=== PATIENT | male | born 1940 | race Caucasian/White ===

== ENCOUNTER 2018-11-04 08:29 | Day surgery (SDC) | payer MEDICARE, OTHER ==
[~2018-11-04 08:29] MED LIST: Lactated Ringers 1,000 ML IV SCH
[2018-11-04] MEDS ORDERED: fentaNYL 100 MCG/2 ML SDV ONE (09:34)
[2018-11-04] MEDS ORDERED: Propofol 200 MG/20 ML SDV ONE (09:34)
--- NOTE | 2018-11-04 15:34 | OR ---
PREOPERATIVE DIAGNOSIS: History of right-sided colon cancer. POSTOPERATIVE DIAGNOSIS: History of right-sided colon cancer. PROCEDURE PERFORMED: Colonoscopy with polypectomy. INDICATION: The patient is a 78-year-old male with history of colon cancer several years ago. He presents for repeat colonoscopy at this time. PROCEDURE IN DETAIL: This was done in the endoscopy suite. Sedation given per Anesthesia. He was placed in left lateral position. First, a rectal exam was done, was normal. The scope was introduced into the rectum, slowly advanced to the rectum, sigmoid, descending, transverse colon until the previous ileocolic anastomosis was reached. That looked normal, although somewhat strictured down, I did not dilate it as the patient has had no symptoms. The scope was slowly withdrawn looking at all the mucosal surfaces on the way out. Two small polyps were found, 1 at 70 cm and 1 at 20 cm which were removed by cold forceps and sent to pathology. The remainder of the exam was normal. FINAL DIAGNOSIS: Polyp at 70 cm, polyp at 20 cm. BKD: 11/04/2018 10:52:43 MODL: 11/04/2018 14:36:50 /[id number]
== END 2018-11-04 11:50 | disposition home or self-care (01) ==
LOC: VM.SDS 08:29
PROVIDERS: ATTEND Surgery
DX: Z12.11 Encounter for screening for malignant neoplasm of colon (principal); D12.4 Benign neoplasm of descending colon; K63.5 Polyp of colon; I25.10 Atherosclerotic heart disease of native coronary artery without angina pectoris; E03.9 Hypothyroidism, unspecified; K21.9 Gastro-esophageal reflux disease without esophagitis; K44.9 Diaphragmatic hernia without obstruction or gangrene; F32.9 Major depressive disorder, single episode, unspecified; Z85.038 Personal history of other malignant neoplasm of large intestine; Z79.899 Other long term (current) drug therapy; Z88.8 Allergy status to other drugs, medicaments and biological substances; Z79.82 Long term (current) use of aspirin; Z79.02 Long term (current) use of antithrombotics/antiplatelets
CPT/HCPCS: 00811; J2704; J3010; J7120

== ENCOUNTER 2020-03-04 19:44 | Emergency (ER) | payer MEDICARE, OTHER ==
[2020-03-04] MEDS ORDERED: Oxymetazoline 0.05% Nasal Spray 30 ML Bottle NAS ONE (20:05)
--- NOTE | 2020-03-04 20:56 | EDM.PDOC ---
ED HPI GENERAL MEDICAL PROBLEM - General Stated Complaint: NOSE BLEED Time Seen by Provider: 03/04/20 19:50 Source of Information: Reports: Patient History Limitations: Reports: No Limitations - History of Present Illness INITIAL COMMENTS - FREE TEXT/NARRATIVE: Patient comes emergency department today with complaints of epistaxis to the left nares. This patient since about 1300 hrs. today has had on and off bleeding of the left nares. He has attempted direct pressure as well as placement of gauze in the nares without resolution of the bleeding. He has had no recent trauma or injury to his nose. He has very infrequent may be couple nosebleeds a year primarily from the left nares. He only takes aspirin currently as an antiplatelet. He is no longer on Plavix. He does have a very dry nose on the regular basis. He has used saline nasal spray in the past to help with mucosa moisture. No COVID exposure no COVID symptoms. - Related Data Allergies Allergy/AdvReac Type Severity Reaction Status Date / Time budesonide [From Symbicort] Allergy Dizziness Verified 11/04/18 09:20 formoterol [From Symbicort] Allergy Dizziness Verified 11/04/18 09:20 Home Meds: Home Meds Aspirin [Adult Low Dose Aspirin EC] 81 mg PO DAILY 06/16/13 [History] Sertraline HCl [Zoloft] 50 mg PO DAILY 06/16/13 [History] Tamsulosin [Tamsulosin 24 Hr] 0.4 mg PO BEDTIME 06/16/13 [History] guaiFENesin [Mucinex] 600 mg PO DAILY 06/16/13 [History] Clopidogrel [Plavix] 75 mg PO DAILY 10/28/18 [History] Docusate Sodium 100 mg PO BID 10/28/18 [History] Levothyroxine 75 mcg PO ACBREAKFAST 10/28/18 [History] Metoprolol Succinate [Toprol XL] 12.5 mg PO DAILY 10/28/18 [History] Pantoprazole Sodium 40 mg PO BEDTIME 10/28/18 [History] Polyvinyl Alcohol [Akwa Tears] 1 drop OP Q4HR PRN 10/28/18 [History] Umeclidinium Brm/Vilanterol Tr [Anoro Ellipta 62.5-25 MCG] 1 inh IH DAILY 10/28/18 [History] atorvaSTATin Calcium [Lipitor] 40 mg PO BEDTIME 10/28/18 [History] Past Medical History HEENT History: Reports: Allergic Rhinitis, Impaired Vision Cardiovascular History: Reports: CAD, High Cholesterol, Hypertension, Other (See Below) Other Cardiovascular History: atrial flutter. low HDL Respiratory History: Reports: COPD Gastrointestinal History: Reports: GERD, Hiatal Hernia Genitourinary History: Reports: BPH Musculoskeletal History: Reports: Osteoarthritis, Other (See Below) Other Musculoskeletal History: carpal tunnel syndrome. spinal stenosis of lumbar region with radiculopathy Neurological History: Reports: None Psychiatric History: Reports: Depression Endocrine/Metabolic History: Reports: Hypothyroidism Immunologic History: Reports: None Oncologic (Cancer) History: Reports: Colon Dermatologic History: Reports: Other (See Below) Other Dermatologic History: Easily bruises - Past Surgical History HEENT Surgical History: Reports: None Cardiovascular Surgical History: Reports: Coronary Artery Bypass, Coronary Artery Stent Other Cardiovascular Surgeries/Procedures: CABG x2. drug eluting coronary stent placement -11/2016 GI Surgical History: Reports: Cholecystectomy, Colonoscopy, EGD Endocrine Surgical History: Reports: None ED ROS ENT - Review of Systems Review Of Systems: Comprehensive ROS is negative, except as noted in HPI. ED EXAM, ENT - Physical Exam Exam: See Below Exam Limited By: No Limitations General Appearance: Alert, WD/WN, No Apparent Distress Eye Exam: Bilateral Eye: EOMI, PERRL Ears: Normal External Exam Nose: Normal Inspection, Normal Mucousa, No Blood, Other (There is no active bleeding in either the nasopharynx is. I am unable to identify the site of where the bleeding was coming from on the left nasopharynx.) Mouth/Throat: Normal Inspection, Normal Gums, Normal Lips, Normal Oropharynx, Normal Teeth. No: Bleeding (There is no bleeding down the posterior pharynx.) Head: Atraumatic, Normocephalic Neck: Normal Inspection, Supple, Non-Tender Respiratory/Chest: No Respiratory Distress Cardiovascular: Normal Peripheral Pulses, Regular Rate, Rhythm GI/Abdominal: Normal Bowel Sounds, Soft (Male) Exam: Deferred Extremities: Normal Inspection Neurological: Alert, Oriented Psychiatric: Normal Affect, Normal Mood Skin: Warm, Dry, Intact, Normal Color, No Rash Course - Orders/Labs/Meds Meds: Medications Discontinued Medications Generic Name Dose Route Start Last Admin Trade Name Freq PRN Reason Stop Dose Admin Oxymetazoline HCl 1 ml 03/04/20 20:05 Nasal Decongestant [place] JI 03/04/20 20:06 ONETIME ONE - Re-Assessments/Exams Free Text/Narrative Re-Assessment/Exam: 03/04/20 20:58 Was no active bleeding on the initial exam. 2 sprays of oxymetazoline was placed in the bilateral nares. Monitored over the next half an hour or so and he had no recurrence of bleeding. Reexamination of the nares I can still not see any blood in the nasopharynx. I cannot see the site of bleeding this is most likely a posterior type bleed in the nasopharynx. The nasal mucosa is quite raw and dry and cracked. We will send him home with aggressive saline administration of the nasopharynx starting tomorrow as well as consideration for nasal gel. If he has recurrence I discussed the use of oxymetazoline and direct pressure and when to recheck. He is understanding this and his questions are answered. Departure - Departure Time of Disposition: 20:52 Disposition: Home, Self-Care 01 Clinical Impression: Epistaxis - Discharge Information Instructions: Nosebleed, [id number] Referrals: Juanis Luther DO [Primary Care Provider] - Additional Instructions: Home tonight. Saline Nasal spray to each nostril 4 times a day for a week and then 2 sprays each nostril twice daily to help prevent bleeding. Also inquire with the pharmacist about nasal saline gel as another option. If rebleeding occurs, Afrin/Oxymetazoline 2 sprays each nostril then hold direct pressure as shown in the ED for 20 minutes. If the bleeding does not resolve recheck in the ED or clinic. Return to the ED if new or worsening symptoms. Follow up with PCP in the next week if any problems or concerns. - Assessment/Plan Assessment:: Epistaxis resolved upon arrival. prison anti-platelet therapy. Plan: Home tonight. Saline Nasal spray to each nostril 4 times a day for a week and then 2 sprays each nostril twice daily to help prevent bleeding. Also inquire with the pharmacist about nasal saline gel as another option. If rebleeding occurs, Afrin/Oxymetazoline 2 sprays each nostril then hold direct pressure as shown in the ED for 20 minutes. If the bleeding does not resolve recheck in the ED or clinic. Return to the ED if new or worsening symptoms. Follow up with PCP in the next week if any problems or concerns.
== END 2020-03-04 21:17 | disposition home or self-care (01) ==
LOC: VM.ED 19:44
DX: R04.0 Epistaxis (principal); I25.10 Atherosclerotic heart disease of native coronary artery without angina pectoris; E78.00 Pure hypercholesterolemia, unspecified; I10 Essential (primary) hypertension; J44.9 Chronic obstructive pulmonary disease, unspecified; K21.9 Gastro-esophageal reflux disease without esophagitis; N40.0 Benign prostatic hyperplasia without lower urinary tract symptoms; E03.9 Hypothyroidism, unspecified; M19.90 Unspecified osteoarthritis, unspecified site; Z88.8 Allergy status to other drugs, medicaments and biological substances; Z79.82 Long term (current) use of aspirin; Z79.899 Other long term (current) drug therapy; Z79.02 Long term (current) use of antithrombotics/antiplatelets
CPT/HCPCS: 99283; A9270-GY

== ENCOUNTER 2021-03-27 14:34 | Emergency (ER) | payer MEDICARE, OTHER ==
[2021-03-27] MEDS: cefTRIAXone 1 GM, Lidocaine 1% 2.1 ML IM ONE ×2 (15:10)
[2021-03-27] MEDS: Take Home: Cephalexin 500 MG Cap, 4 Cap Pack PO ONE (15:10)
== END 2021-03-27 15:45 | disposition home or self-care (01) ==
LOC: VM.ED 14:34
DX: L03.012 Cellulitis of left finger (principal); I25.10 Atherosclerotic heart disease of native coronary artery without angina pectoris; I10 Essential (primary) hypertension; E78.00 Pure hypercholesterolemia, unspecified; J44.9 Chronic obstructive pulmonary disease, unspecified; K21.9 Gastro-esophageal reflux disease without esophagitis; N40.0 Benign prostatic hyperplasia without lower urinary tract symptoms; M19.90 Unspecified osteoarthritis, unspecified site; E03.9 Hypothyroidism, unspecified; Z88.8 Allergy status to other drugs, medicaments and biological substances; Z79.82 Long term (current) use of aspirin; Z79.899 Other long term (current) drug therapy
CPT/HCPCS: 96372; 99282; 99283; A9270-GY; J0696